=== PATIENT | female | born 1950 | race Two or more races ===

== ENCOUNTER 2024-11-29 13:04 | Emergency (ER) | payer OTHER ==
[~2024-11-29] VITALS: Ht 162.6 cm; Wt 72.6 kg
[2024-11-29] MEDS ORDERED: ROSUVASTATIN CA10 MG (13:40)
[2024-11-29] MEDS ORDERED: TOPROL XL50 M1 (13:40)
[2024-11-29] MEDS ORDERED: KETOROLAC TROMETHAMINE 30 MG VIAL IV ONE (15:00)
[2024-11-29] MEDS ORDERED: KETOROLAC TROMETHAMINE 30 MG VIAL ONE (15:29)
[2024-11-29 15:35] LABS: HEMATOCRIT 37.1 % (36.0-45.00); HEMOGLOBIN 12.2 g/dL (12.0-15.00); MEAN CELL VOLUME 95.5 fL (80.00-100.00); MEAN CORPUSCULAR HEMOGLOBIN 31.6 pg (27.00-32.0); PLATELET COUNT 344 K/uL (150-450); RED BLOOD COUNT 3.88 M/uL (4.00-6.00); RED CELL DISTRIBUTION WIDTH 12.8 % (11.5-14.5)
[2024-11-29 15:58] LABS: CALCIUM 9.6 mg/dL (8.5-10.1); CREATININE SERUM 0.58 mg/dL (0.55-1.02); GFR 101.62; POTASSIUM 3.95 mEq/L (3.5-5.1)
[2024-11-29 18:40] LABS: PH,URINE 5.5 (5.0-8.0); URINE APPEARANCE Clear; URINE BILIRRUBIN Negative (NEGATIVE); URINE BLOOD Negative; URINE COLOR Yellow; URINE GLUCOSE Negative (NEGATIVE); URINE KETONE Negative (NEGATIVE); URINE LEUKOCYTE Trace; URINE NITRATE Negative; URINE PROTEIN Negative (NEGATIVE); URINE UROBILINOGEN 0.2 E.U./dl
[2024-11-29 18:43] LABS: URINE BACTERIA 302.3 uL (0.0-1933); URINE EPITHELIAL CELLS 23.5 uL (0.0-38.8); URINE WBC 10.9 uL (0.0-23.2)
[2024-11-29 18:51] LABS: URINE RBC 1.4 uL (0.0-20.8)
[2024-11-29] MEDS ORDERED: DICLOFENAC SODI75 MG PO (21:59)
== END 2024-11-29 22:43 | disposition home or self-care (01) ==
LOC: ER 13:05
PROVIDERS: Emergency Medicine
DX: R10.9 Unspecified abdominal pain (principal); M54.9 Dorsalgia, unspecified; I10 Essential (primary) hypertension
CPT/HCPCS: 36415; 74177; 96365; 99284; J1885; Q9965

== ENCOUNTER 2024-12-06 09:42 | Outpatient (CLI) | payer OTHER ==
[~2024-12-06 09:42] MED LIST: DICLOFENAC SODI75 MG PO; ROSUVASTATIN CA10 MG; TOPROL XL50 M1
== END 2024-12-06 09:49 | disposition home or self-care (01) ==
LOC: MRI 09:42
PROVIDERS: ATTEND Internal Medicine
DX: M54.17 Radiculopathy, lumbosacral region (principal); M51.87 Other intervertebral disc disorders, lumbosacral region; M54.50 Low back pain, unspecified
CPT/HCPCS: 72148